=== PATIENT | male | born 1995 | race Caucasian/White ===

== ENCOUNTER 2018-01-25 21:28 | Emergency (ER) | payer SELFPAY ==
[~2018-01-25] VITALS: Ht 167.6 cm; Wt 65.0 kg
[2018-01-25 21:36] VITALS: BP 140/68; PULSE 102; RESP 16; TEMP 98.9; O2SAT 100
[2018-01-26] MEDS ORDERED: SODIUM CHLOR 0.9% 1000 ML INJ 1,000 ML IV ONE (00:30)
[2018-01-26] MEDS ORDERED: KETOROLAC TROMETHAMINE 30 MG/ML (IVP) VIAL IV PUSH ONE (00:30)
[2018-01-26] MEDS ORDERED: methylPREDNISolone SOD SUCC 125 MG/2 ML VIAL IV PUSH ONE (00:30)
[2018-01-26 00:58] LABS: BASOPHIL % 0.4 % (0.0-2.0); EOSINOPHIL % 0.1 % (0.0-4.0); HEMATOCRIT 45.7 % (39.0-51.0); HEMOGLOBIN 15.6 GM/DL (13.0-17.0); LYMPHOCYTE # 1.2 TH/MM3 (1.0-4.8); MEAN CELL VOLUME 91.4 FL (80.0-100.0); MEAN CORPUSCULAR HEMOGLOBIN 31.2 PG (27.0-34.0); MEAN CORPUSCULAR HGB CONC 34.1 % (32.0-36.0); MEAN PLATELET VOLUME 7.9 FL (7.0-11.0); MONO % 16.1 % (0.0-8.0); MONOCYTE # 1.4 TH/MM3 (0-0.9); NEUT % 69.4 % (16.0-70.0); PLATELET COUNT 200 TH/MM3 (150-450); WHITE BLOOD COUNT 8.7 TH/MM3 (4.0-11.0)
--- NOTE | 2018-01-26 00:58 | PD ---
HPI Chief Complaint: Musculoskeletal Complaint Time Seen by Provider: 23:36 Travel History International Travel<30 days: No Contact w/Intl Traveler<30days: No Traveled to known affect area: No History of Present Illness HPI 22-year-old male presents emergency department we will complains of bilateral ankle pain. He states that he was in his normal state of health yesterday. He had driven to [place] for his entrance physical for the [employer]. He states that he was there overnight and drove back in the town today. After getting home he had noticed some pain in his right ankle followed by swelling. He states that he is now developing pain and swelling in his left ankle. The patient does report tingling in both feet. He denies any drugs, alcohol. No calf tenderness or swelling. He states that he had been in his normal state of health. He denies any recent illness. No history of connective tissue disorders or clotting disorders. No significant family history. PFSH Past Medical History Medical History: Denies Significant Hx Immunizations Current: Yes Tetanus Vaccination: < 5 Years Influenza Vaccination: No Past Surgical History Surgical History: No Previous Surgery Social History Alcohol Use: No Tobacco Use: No Substance Use: No Allergies-Medications (Allergen,Severity, Reaction): Coded Allergies: No Known Allergies (Verified Allergy, Unknown, 01/25/18) Review of Systems General / Constitutional: No: Fever Eyes: No: Visual changes HENT: No: Headaches Cardiovascular: No: Chest Pain or Discomfort Respiratory: No: Shortness of Breath Gastrointestinal: No: Abdominal Pain Genitourinary: No: Dysuria Musculoskeletal: Positive: Arthralgias, Limited ROM, Edema, Pain, No: Myalgias , Weakness, Cramping Skin: No Rash Neurologic: No: Weakness Psychiatric: No: Depression Endocrine: No: Polydipsia Hematologic/Lymphatic: No: Easy Bruising Physical Exam Narrative GENERAL: Well-developed, well-nourished in no acute distress. Nontoxic appearing. HEAD: Normocephalic, atraumatic. EYES: Pupils equal round and reactive. Extraocular motions intact. No scleral icterus. No injection or drainage. ENT: TMs clear without erythema. The external auditory canals clear. Nose: clear . Posterior pharynx is pink and moist. No tonsillar edema or exudate. Uvula midline. Airway patent. NECK: Trachea midline.Supple, nontender, moves head freely. No central bony tenderness or spasm. CARDIOVASCULAR: Regular rate and rhythm without murmurs, gallops, or rubs. RESPIRATORY: Clear to auscultation. Breath sounds equal bilaterally. No wheezes , rales, or rhonchi. GASTROINTESTINAL: Abdomen soft, non-tender, nondistended. No hepato-splenomegaly , or palpable masses. No guarding. EXTREMITIES: Examination of the right lower extremity reveals diffuse pain in the right ankle with swelling. He does have mild to moderate infra malleolar swelling. There is no erythema or warmth. He has some mild proximal forefoot tenderness with minimal swelling. The skin is intact. No distal forefoot pain. No pain in the toes. He does have some mild discomfort in the Achilles area. No pain in the calf, knee, thigh or hip. The left lower extremity also has some mild pain in the ankle but is much less intense than the right. He only has only trace swelling in the left. No pain in the foot, calf, knee, thigh or hip. Patient has good bilateral dorsalis pedis and posterior tibialis pulses. He has intact gross sensation into the toes although he complains of tingling. No Homans sign. The calf and thigh are supple. BACK: Nontender without deformity or crepitance. No flank tenderness. Data Data Last Documented VS Vital Signs Date Time Temp Pulse Resp B/P (MAP) Pulse Ox O2 Delivery O2 Flow Rate FiO2 01/25/18 21:36 98.9 102 16 140/68 (92) 100 Room Air Orders Orders Complete Blood Count With Diff (01/26/18 00:21) Basic Metabolic Panel (Bmp) (01/26/18 00:21) [place]gren Sedimentation Rate (01/26/18 00:21) Iv Access Insert/Monitor (01/26/18:21) Uric Acid (01/26/18:21) Sodium Chlor 0.9% 1000 Ml Inj (Ns 1000 M (01/26/18 00:30) Ketorolac Inj (Toradol Inj) (01/26/18 00:30) Methylprednisolone So Succ Inj (Solumedr (01/26/18 00:30) Acetamin-Hydrocod 325-5 Mg ([place] 5-325 (01/26/18 02:15) Splint Or Brace Apply/Monitor (01/26/18 02:07) Crutches (01/26/18 02:07) Ed Discharge Order (01/26/18 02:07) Labs Laboratory Tests Test 01/26/18 00:45 White Blood Count 8.7 TH/MM3 Red Blood Count 5.00 MIL/MM3 Hemoglobin 15.6 GM/DL Hematocrit 45.7 % Mean Corpuscular Volume 91.4 FL Mean Corpuscular Hemoglobin 31.2 PG Mean Corpuscular Hemoglobin Concent 34.1 % Red Cell Distribution Width 13.0 % Platelet Count 200 TH/MM3 Mean Platelet Volume 7.9 FL Neutrophils (%) (Auto) 69.4 % Lymphocytes (%) (Auto) 14.0 % Monocytes (%) (Auto) 16.1 % Eosinophils (%) (Auto) 0.1 % Basophils (%) (Auto) 0.4 % Neutrophils # (Auto) 6.0 TH/MM3 Lymphocytes # (Auto) 1.2 TH/MM3 Monocytes # (Auto) 1.4 TH/MM3 Eosinophils # (Auto) 0.0 TH/MM3 Basophils # (Auto) 0.0 TH/MM3 CBC Comment DIFF FINAL Differential Comment Erythrocyte Sedimentation Rate 6 mm/hr Blood Urea Nitrogen 14 MG/DL Creatinine 1.21 MG/DL Random Glucose 93 MG/DL Calcium Level 9.0 MG/DL Uric Acid 4.4 MG/DL Sodium Level 141 MEQ/L Potassium Level 3.7 MEQ/L Chloride Level 108 MEQ/L Carbon Dioxide Level 23.2 MEQ/L Anion Gap 10 MEQ/L Estimat Glomerular Filtration Rate 76 ML/MIN MDM Medical Decision Making Medical Screen Exam Complete: Yes Emergency Medical Condition: Yes Medical Record Reviewed: Yes Interpretation(s) Laboratory Tests Test 01/26/18 00:45 White Blood Count 8.7 TH/MM3 Red Blood Count 5.00 MIL/MM3 Hemoglobin 15.6 GM/DL Hematocrit 45.7 % Mean Corpuscular Volume 91.4 FL Mean Corpuscular Hemoglobin 31.2 PG Mean Corpuscular Hemoglobin Concent 34.1 % Red Cell Distribution Width 13.0 % Platelet Count 200 TH/MM3 Mean Platelet Volume 7.9 FL Neutrophils (%) (Auto) 69.4 % Lymphocytes (%) (Auto) 14.0 % Monocytes (%) (Auto) 16.1 % Eosinophils (%) (Auto) 0.1 % Basophils (%) (Auto) 0.4 % Neutrophils # (Auto) 6.0 TH/MM3 Lymphocytes # (Auto) 1.2 TH/MM3 Monocytes # (Auto) 1.4 TH/MM3 Eosinophils # (Auto) 0.0 TH/MM3 Basophils # (Auto) 0.0 TH/MM3 CBC Comment DIFF FINAL Differential Comment Erythrocyte Sedimentation Rate 6 mm/hr Blood Urea Nitrogen 14 MG/DL Creatinine 1.21 MG/DL Random Glucose 93 MG/DL Calcium Level 9.0 MG/DL Uric Acid 4.4 MG/DL Sodium Level 141 MEQ/L Potassium Level 3.7 MEQ/L Chloride Level 108 MEQ/L Carbon Dioxide Level 23.2 MEQ/L Anion Gap 10 MEQ/L Estimat Glomerular Filtration Rate 76 ML/MIN Differential Diagnosis Differential diagnosis: Gout, tendinitis, inflammatory arthritis, sprain, strain , DVT Narrative Course IV access is obtained. Patient was given liter bolus of normal saline, Toradol 30 mg IV, and Solu-Medrol 125 mg IV. The patient was given additional hydrocodone 5 mg p.o. at discharge. He is given Karthik wrap to his right ankle and crutches. I have expressed to the patient that I have not determined the etiology of his swelling and pain. I feel that he is medically stable to go home. I do not see any evidence of any acute nerve, or vascular injury. I suspect this is an inflammatory process. This is not an arterial or venous type occlusion process. His calves are supple. Patient is made aware that he may need to have additional evaluation and treatment for further diagnostic and evaluation of his pain and swelling. He is given the [facility] weig[facility] as well as the [facility] to be rechecked again tomorrow. This is bilateral ankle pain and swelling Diagnosis Primary Impression: Bilateral ankle pain and swelling Referrals: Alexandra Doan DPM 1 day [facility] 1 day Patient Instructions: General Instructions, Narcotic given in the ED Additional Instructions: Rest. Elevation. Deltasone and diclofenac. Karthik wrap and crutches. Limit weightbearing. Follow-up with podiatry on-call tomorrow for second opinion. Follow-up with [facility] tomorrow for second opinion. Med/Other Pt SpecificInfo: Prescription(s) given Scripts Diclofenac Sodium (Diclofenac Sodium DR) 75 Mg Tabdr 75 MG PO BID, #20 TAB 0 Refills Prov: Simona Barnhart MD 01/26/18 Prednisone (Deltasone) 20 Mg Tab 20 MG PO TID, #15 TAB 0 Refills Prov: Simona Barnhart MD 01/26/18 Disposition: 01 DISCHARGE HOME Condition: Kong Taylor Jan 26, 2018 00:58
[2018-01-26 01:24] LABS: BICARBONATE 23.2 MEQ/L (21.0-32.0); CREATININE 1.21 MG/DL (0.60-1.30)
[2018-01-26] MEDS ORDERED: DICL75TA PO (02:10)
[2018-01-26] MEDS ORDERED: PRED-503 PO (02:10)
[2018-01-26] MEDS ORDERED: ACETAMINOPHEN/HYDROcodone 325 MG/5 MG TAB PO ONE (02:15)
== END 2018-01-26 02:54 | disposition home or self-care (01) ==
LOC: NEPD 21:28
DX: M25.572 Pain in left ankle and joints of left foot (principal); M25.571 Pain in right ankle and joints of right foot; M25.472 Effusion, left ankle; M25.471 Effusion, right ankle
CPT/HCPCS: 80048; 84550; 85025; 85652; 96361; 96374; 96375; 99284; E0113; J1885; J2930; J7030